=== PATIENT | female | born 1955 | race Two or more races ===

== ENCOUNTER 2019-05-10 08:01 | Emergency (ER) | payer MEDICARE, OTHER ==
[~2019-05-10] VITALS: Ht 154.9 cm; Wt 57.6 kg
[2019-05-10 08:07] VITALS: BP 120/63
[2019-05-10] MEDS ORDERED: TDAP [DIPH/PERTUSSIS/TET] 0.5 ML VIAL IM ONE ×2 (08:20→08:30)
[2019-05-10] MEDS ORDERED: CEFAZOLIN 1 GM VIAL IM ONE (08:30)
[2019-05-10] MEDS ORDERED: BACI/NEOM/POLY B OINT PKT 1 UDPKT PACKET TP ONE (08:30)
[2019-05-10] MEDS ORDERED: WATER FOR INJECTION,STERILE 10 ML ONE (08:34)
--- NOTE | 2019-05-10 08:47 | NUR ---
Patient discharged to home in stable condition. Written and verbal after care instructions given. Patient verbalizes understanding of instruction.
== END 2019-05-10 08:49 | disposition home or self-care (01) ==
LOC: ER 08:01
DX: T24.202A Burn of second degree of unspecified site of left lower limb, except ankle and foot, initial encounter (principal); S80.862A Insect bite (nonvenomous), left lower leg, initial encounter; W57.XXXA Bitten or stung by nonvenomous insect and other nonvenomous arthropods, initial encounter; Y93.89 Activity, other specified; Y92.89 Other specified places as the place of occurrence of the external cause; Y99.8 Other external cause status
CPT/HCPCS: 90471; 90715; 96372; 99283; J0690

== ENCOUNTER 2019-05-21 21:10 | Emergency (ER) | payer MEDICARE, OTHER ==
[~2019-05-21] VITALS: Ht 154.9 cm; Wt 58.5 kg
[2019-05-21 21:18] VITALS: BP 143/67
== END 2019-05-21 22:04 | disposition home or self-care (01) ==
LOC: ER 21:14
DX: S90.822A Blister (nonthermal), left foot, initial encounter (principal); L29.9 Pruritus, unspecified; I10 Essential (primary) hypertension; X58.XXXA Exposure to other specified factors, initial encounter; Y93.89 Activity, other specified; Y92.89 Other specified places as the place of occurrence of the external cause; Y99.8 Other external cause status

== ENCOUNTER 2021-09-25 11:29 | Emergency (ER) | payer MEDICARE, OTHER ==
[~2021-09-25] VITALS: Ht 149.9 cm; Wt 56.2 kg
--- NOTE | 2021-09-25 11:29 | NUR ---
BIBS C/O OF LOWER AND MID BACK PAIN X1WEEK; 07/25 ON PS. VIALS WITHIN NORMAL LIMITS. BREATHING REGULAR AND UNLABORED. PATIENT WAS ATTCHED TO MONITOR AND PULSE OX. AWAITING MD SEO.
--- NOTE | 2021-09-25 11:41 | NUR ---
URINE COLLECTED AND SENT
--- NOTE | 2021-09-25 11:49 | NUR ---
IV ESTABLISHED #20G R AC. LABS WERE DRAWN AND SENT..
[2021-09-25 13:26] LABS: BILIRUBIN,URINE NEGATIVE (NEGATIVE); COLOR,URINE YELLOW (YELLOW); LEUKOCYTE ESTERASE ,URINE NEGATIVE (NEGATIVE); NITRITE, URINE NEGATIVE (NEGATIVE); PH,URINE 5.5 (5.0-8.0); PROTEIN,URINE NEGATIVE (NEGATIVE); UGLUCOSE NEGATIVE (NEGATIVE); UROBILINOGEN,URINE 0.2 EU/dL (0.2)
[2021-09-25 13:47] LABS: BACTERIA,URINE None seen /HPF (None Seen); SQUAMOUS EPITHELIAL CELL,UR Few /HPF (None Seen); WBC,URINE 0-2 /HPF (0-3)
[2021-09-25 14:01] LABS: BASOPHILS # (AUTO) 0.1 K/uL (0.0-0.2); BASOPHILS % (AUTO) 0.8 % (0.0-2.0); EOSINOPHILS % (AUTO) 2.6 % (0.0-6.0); HEMATOCRIT 34 % (33-45); HEMOGLOBIN 10.8 g/dL (11.5-14.8); LYMPHOCYTES # (AUTO) 2.1 K/uL (0.8-4.8); LYMPHOCYTES % (AUTO) 28.9 % (20.0-44.0); MEAN CORPUSCULAR HGB CONC 31 g/dl (31.0-36.0); MEAN CORPUSCULAR VOLUME 65 fL (82-100); MONOCYTES # (AUTO) 0.4 K/uL (0.1-1.30); MONOCYTES % (AUTO) 5.6 % (2.0-12.0); NEUTROPHILS # (AUTO) 4.6 K/uL (1.8-8.9); NEUTROPHILS % (AUTO) 62.1 % (43.0-81.0); PLATELET COUNT (AUTO) 254 K/uL (150-450); RED BLOOD CELL COUNT(AUTO) 5.25 MIL/uL (4.0-5.2); WHITE BLOOD COUNT (AUTO) 7.4 K/uL (4.3-11.0)
[2021-09-25 14:02] LABS: CREATININE 0.9 mg/dL (0.6-1.3); POTASSIUM 3.2 mmol/L (3.5-5.1)
[2021-09-25] MEDS ORDERED: IOHEXOL-300 100 ML VIAL IV ONE (14:17)
--- NOTE | 2021-09-25 14:19 | NUR ---
PT TAKEN TO CT
--- NOTE | 2021-09-25 14:35 | NUR ---
PT BACK FROM CT
[2021-09-25] MEDS ORDERED: IBUP-1955 PO (15:59)
[2021-09-25] MEDS ORDERED: ACET325C7 PO (15:59)
[2021-09-25] MEDS ORDERED: POTASSIUM CHLORIDE 20 MEQ TAB.PRT.SR PO ONE ×2 (16:00)
--- NOTE | 2021-09-25 16:23 | NUR ---
IV removed. Catheter intact and site benign. Pressure and 4x4 applied to site. No bleeding noted.Patient discharged to home in stable condition. Written and verbal after care instructions given. Patient verbalizes understanding of instruction.
[2021-09-25 16:24] VITALS: BP 152/71
== END 2021-09-25 16:24 | disposition home or self-care (01) ==
LOC: ER 11:35
DX: M54.50 Low back pain, unspecified (principal); I10 Essential (primary) hypertension
CPT/HCPCS: 36415; 74177; 80048; 81001; 85025; 99285; Q9967